=== PATIENT | female | born 1955 | race Caucasian/White ===

== ENCOUNTER 2016-10-08 07:21 | Day surgery (SDC) | payer OTHER ==
--- NOTE | ~2016-10-08 | EGD ---
EGD REPORT [facility] [address] [place]. [id number] NAME: GIFTY CAMP : 53 STATUS : REG [facility]#: [id number] AGE: 61 ADM/REG DATE : 10/08/16 MR#: [id number] REPORT SERV DATE: 10/08/16 DICTATED BY: CONNOR MULLEN DATE: 10/08/16 REPORT STATUS : Draft [facility]ANS[facility] BY: [facility] DATE: 10/08/16 Endoscopy Center Patient Name: Gifty Camp Date of : 1955 Attending MD: CONNOR MULLEN MD Procedure Date No Time: 10/08/2016 Procedure: Colonoscopy Indications: High risk colon cancer surveillance: Personal history of colonic polyps Referring MD: ELIAZAR TAYLOR MD Medicines: as per anesthesia Complications: No immediate complications. Procedure: Pre-Anesthesia Assessment: - ASA Grade Assessment: II - A patient with mild systemic disease. After I obtained informed consent, the scope was passed under direct vision. Throughout the procedure, the patient's blood pressure, pulse, and oxygen saturations were monitored continuously. The PCF [id number] was introduced through the anus and advanced to the cecum, identified by appendiceal orifice and ileocecal valve. The colonoscopy was performed without difficulty. The patient tolerated the procedure well. The quality of the bowel preparation was adequate to identify polyps. Findings: The perianal and digital rectal examinations were normal. A sessile polyp was found in the ascending colon. The polyp was 4 mm in size. The polyp was removed with a cold biopsy forceps. Resection and retrieval were complete. A few small-mouthed diverticula were found in the sigmoid colon. Internal hemorrhoids were found during endoscopy and were mild. Impression: - One 4 mm polyp in the ascending colon. Resected and retrieved. - Diverticulosis in the sigmoid colon. - Internal hemorrhoids. Recommendation: - Await pathology results. - Repeat colonoscopy for surveillance based on pathology results. Procedure Code(s): --- Professional --- 21388, Colonoscopy, flexible, proximal to splenic flexure; with biopsy, single or multiple EGD REPORT [facility] [address] [address] NAME: GIFTY CAMP : [birth year] STATUS : [place] [facility] PAT#: [id number] AGE: 61 ADM/REG DATE : 10/08/16 MR#: [id number] REPORT SERV DATE: 10/08/16 DICTATED BY: CONNOR MULLEN DATE: 10/08/16 REPORT STATUS : Draft TRANSCRIBED BY: [place] DATE: 10/08/16 Diagnosis Code(s): --- Professional --- D12.2, Benign neoplasm of ascending colon K64.8, Other hemorrhoids K57.30, Diverticulosis of large intestine without perforation or abscess without bleeding Z86.010, Personal history of colonic polyps CPT copyright 2013 [employer] [place]. All rights reserved. The codes documented in this report are preliminary and upon brush clearer surveying review may be revised to meet current compliance requirements. CONNOR MULLEN MD 10/08/2016 9:49 AM This report has been signed electronically. Number of Addenda: 0 Note Initiated On: 10/08/2016 9:19 AM Scope Withdrawal Time 0 hours 11 minutes 43 seconds [id number] [facility] [place] [address]
[~2016-10-08 07:21] MED LIST: FOLIC PO; HUMIRA SC; METHOTREXATE SC; P5 PO; PRIN10 PO; RELA5 PO; VITAMIN D31000 UNIT PO
== END 2016-10-08 23:59 | disposition home or self-care (01) ==
LOC: DMU 07:21
PROVIDERS: Internal Medicine Gastroenterology
PROC: 0DBK8ZZ Excision of Ascending Colon, Via Natural or Artificial Opening Endoscopic (ICD-10-PCS; principal; 2016-10-08 09:00)
DX: D12.2 Benign neoplasm of ascending colon (principal); K57.30 Diverticulosis of large intestine without perforation or abscess without bleeding; K64.8 Other hemorrhoids; K21.9 Gastro-esophageal reflux disease without esophagitis; I10 Essential (primary) hypertension; E78.00 Pure hypercholesterolemia, unspecified; M06.9 Rheumatoid arthritis, unspecified; Z86.010 Personal history of colon polyps; Z91.09 Other allergy status, other than to drugs and biological substances; Z96.1 Presence of intraocular lens; Z98.42 Cataract extraction status, left eye; Z79.52 Long term (current) use of systemic steroids; Z79.899 Other long term (current) drug therapy; Z98.890 Other specified postprocedural states
CPT/HCPCS: 88305